=== PATIENT | male | born 1965 | race Caucasian/White ===

== ENCOUNTER 2022-04-13 17:35 | Emergency (ER) | payer BC ==
[2022-04-13] MEDS ORDERED: Ondansetron 4 MG Tab.DIS PO ONE (18:36)
== END 2022-04-13 19:36 ==
LOC: JP.ED 17:35
DX: T18.128A Food in esophagus causing other injury, initial encounter (principal); Z79.899 Other long term (current) drug therapy; Z20.822 Contact with and (suspected) exposure to COVID-19
CPT/HCPCS: 99284; 99285; Q0162; U0002